=== PATIENT | male | born 1980 | race Caucasian/White ===

== ENCOUNTER 2018-10-11 15:43 | Emergency (ER) | payer SELFPAY ==
--- NOTE | 2018-10-11 16:40 | ED Physician Chart ---
ED Chief Complaint/HPI - Patient Information Date Seen:: 10/11/18 Time Seen:: 16:15 Chief Complaint:: pain left superior chest, left suprascapular area and left superior back History of Present Illness:: In August 2017 patient fell breaking his fall with the palms of both hands and striking his left superior chest. Since then he's had pain of the left superior chest, left suprascapular area and left superior back. No recent trauma. Allergies:: Allergies Allergy/AdvReac Type Severity Reaction Status Date / Time No Known Allergies Allergy Verified 10/11/18 15:51 Vitals:: Vital Signs - 8 hr 10/11/18 15:54 Temp 97.6 F HR 118 RR 18 BP 138/83 O2 Sat % 100 Historian:: Patient Review:: Nurse's Note Reviewed ED Review of Systems - Review of Systems General/Constitutional: No fever, No chills Skin: No skin lesions Head: No headache Eyes: No loss of vision ENT: No earache Neck: No neck pain Cardio Vascular: Chest pain Pulmonary: No SOB, No cough GI: No nausea, No vomiting, No diarrhea G/U: No dysuria, No frequency, No hematuria Musculoskeletal: No bone or joint pain, Back pain Endocrine: No polyuria, No polydipsia Psychiatric: No prior psych history Hematopoietic: No bruising Allergic/Immuno: No urticaria Neurological: No syncope, No focal symptoms, No weakness Family Medical History - Family Member Father Hx Family Coronary Artery Disease: Yes ED Labs/Radiology/EKG Results - Radiology Results Results: X-rays left shoulder and chest - EKG Interpretations Rate & Rhythm: sinus tachycardia with a rate of 103 [place]: normal Comments:: Low-voltage ED Assessment - Assessment General Assessment: Since patient's pain is of such long-duration I suggested he get a primary care physician who could order physical therapy or acupuncture. Patient felt slightly improved after the Toradol 30 mg intramuscularly. ED Septic Shock - . Is Septic Shock (SBP<90, OR Lactate>4 mmol\L) present?: No - <6hrs of presentation: Vital Signs: Vital Signs - 8 hr 10/11/18 15:54 Temp 97.6 F HR 118 RR 18 BP 138/83 O2 Sat % 100 ED Reassessment (Disposition) - Reassessment Reassessment Condition:: Unchanged - Diagnosis Diagnosis:: Atypical chest pain; musculoskeletal pain - Aftercare/Follow up Instructions Aftercare/Follow-Up Instructions:: Refer to Discharge Instructions - Patient Disposition Discharge/Transfer:: Home Condition at Disposition:: Stable, Improved
--- NOTE | 2018-10-12 08:41 | Diagnostic Imaging Report ---
CHEST X-RAY: AP view INDICATION: Trauma COMPARISON: None FINDINGS: Exam was presented for review on 10/16/2018. There is no focal consolidation or pleural effusions The heart is normal in size. No evidence of pneumothorax. There is subtle lucency of the right mid clavicle. IMPRESSION: No focal consolidation identified. Subtle lucency of the right mid clavicle. This may be projectional, however, there is concern for nondisplaced right clavicular fracture additional x-rays of the right clavicle are recommended for further assessment
--- NOTE | 2018-10-16 14:25 | Diagnostic Imaging Report ---
EXAM: Left shoulder joint HISTORY: Trauma COMPARISON: None FINDINGS: Multiple views of left shoulder joint reviewed. The study demonstrates no evidence of fracture or dislocation. There is no evidence of subluxation. Acromioclavicular joint is intact. The head of left humerus is well within the glenoid fossa. IMPRESSION: Normal examination of the left shoulder joint.
== END 2018-10-11 17:21 | disposition home or self-care (01) ==
LOC: ER 15:43
DX: R07.89 Other chest pain (principal); M79.18 Myalgia, other site
CPT/HCPCS: 99283; 96372; 93005; 71045; 73030; J1885; Z7502